=== PATIENT | male | born 1945 | race Caucasian/White ===

== ENCOUNTER 2019-10-04 01:19 | Emergency (ER) | payer SELFPAY ==
[2019-10-04 01:31] VITALS: BP 157/98; PULSE 60; RESP 20; TEMP 36.2; O2SAT 97; BMI 25.5
--- NOTE | 2019-10-04 01:37 | XR_ITS ---
WS: [id number] ABDOMEN SERIES ACUTE Supine and upright views of the abdomen with AP or PA chest CLINICAL INFORMATION: Constipation COMPARISON: None. FINDINGS: Heart: Normal cardiac silhouette. Lungs: Lungs are clear. No consolidation or pleural fluid. Advanced chronic emphysematous changes. Bowel gas pattern: Rectosigmoid constipation. Pelvic phleboliths. Free air: None. Abnormal calcifications: None. Bones: Osteopenia. Mild lumbar curve convex right. XR/XR acute abdomen series [id number] IMPRESSION: 1. Advanced chronic emphysematous changes. No acute pulmonary infiltrates. 2. Osteopenia. 3. Rectosigmoid constipation. Otherwise normal bowel gas pattern.
--- NOTE | 2019-10-04 02:19 | ED_ITS ---
HPI - General Adult General: Chief complaint: General Medical Stated complaint: NO BM X 2 DAYS Time Seen by Provider: 10/04/19 01:46 History of Present Illness: HPI narrative: Adriano is a nice 73-year-old male who comes in complaining of constipation. He states that he has had this problem intermittently in the past. He states he feels like there is something down in his rectum but he just cannot get it to pass. He denies any vomiting or fever. He states he has some cramping in his rectum when he tries to go but otherwise denies any abdominal pain. He is tried prunes at home to help with this but he states that is not improving his symptoms. Associated symptoms: Deny chest pain, confusion, diaphoresis, dyspnea, headache(s), malaise, nausea, rash, palpitations, syncope or vomiting Review of Systems Const: Denies: fever(s), chills, body aches, fatigue, malaise, night sweats or diaphoresis Eyes: Denies: change in vision, blurry vision or blind spots ENMT: Denies: throat pain, odynophagia, hoarseness, ear or mastoid pain, ear discharge, change in hearing or nasal discharge Card: Denies: chest pain, palpitations, irregular heart rhythm, lightheadedness, syncope, pre-syncope, dyspnea on exertion or orthopnea Resp: Denies: dyspnea, productive cough, non-productive cough, wheezing, hemoptysis or chest congestion GI: Reports: constipation; Denies: abdominal pain, nausea, vomiting, hematemesis, coffee ground emesis, heartburn, diarrhea, GI cramping, hematochezia or melena : Denies: flank pain, dysuria, urinary frequency, urinary urgency, oliguria, urinary incontinence or hematuria Musc: Denies: neck pain, back pain, extremity pain, extremity swelling, joint pain, joint swelling, joint redness, joint warmth or joint stiffness Skin/Breast: Denies: rash, pruritus, erythema, skin tenderness or jaundice Neuro: Denies: headache(s), numbness in extremities, weakness in extremities, sensory changes, lack of coordination, difficulty walking, dizziness, vertigo, confusion or Slurred speech present Endo: Denies: polyuria, polydipsia, tired all the time, cold intolerance, excessive sweating, flushing, hot flashes or heat intolerance Randy/Lymph: Denies: easy bruising, easy bleeding, petechiae, purpura or enlarged lymph nodes All/Imm: Denies: urticaria, throat swelling, tongue swelling, facial swelling or acute wheezing PFSH ED PFSH: Medical History Anxiety Surgical History History of nasal surgery Social History Smoking and tobacco status: never smoked Physical Exam Const: COMMON NORMALS: no acute distress, patient oriented x3, no limitations, healthy appearing and well nourished EXAM LIMITATIONS: no altered mental status GENERAL APPEARANCE: cooperative, well kempt and well developed HENMT: COMMON NORMALS: normocephalic, atraumatic, hearing grossly normal bilaterally, external ears normal, EAC's normal, Normal external nose present and moist oral mucous membranes HEAD & SCALP: normal to inspection, normocephalic and atraumatic FACE & SINUS: normal facial exam and face symmetric NOSE: Normal external nose present and Normal nares present EXTERNAL EAR: Yes external ears normal EXTERNAL AUDITORY CANAL: EAC's normal MOUTH: Normal oral and palatal mucosa present, lip normal and tongue normal Eye: COMMON NORMALS: Equal, round and reactive pupils present, EOMs intact bilaterally, conjunctivae normal and no scleral icterus GENERAL EYE: appearance normal, both eyes and all related structures ALIGNMENT: Yes alignment normal PERIORBITAL: periorbital findings normal EYELID: eyelids normal CONJUNCTIVA: Yes conjunctivae normal SCLERA: sclerae normal PUPIL: Yes Equal, round and reactive pupils present Neck/C-Spine: COMMON NORMALS: full ROM, no lymphadenopathy, supple, no meningeal signs and no JVD GENERAL: Yes normal visual inspection and Yes trachea midline CERVICAL SPINE: Yes cervical ROM normal Chest: COMMONS NORMALS: normal inspection of the chest and normal palpation of entire chest wall Resp: COMMON NORMALS: normal respiratory effort, No retractions, No use of accessory muscles and clear to auscultation bilaterally EFFORT & INSPECTION: Yes able to speak in complete sentences AUSCULTATION: clear to auscultation bilaterally, no crackles, no rales, no rhonchi and no wheezes Cardio: COMMON NORMALS: no JVD, regular rate, regular rhythm, S1 normal heart sound present, S2 normal heart sound present, No gallops present (Cardio), No clicks present (Cardio), No murmurs present (Cardio) and No rub (Cardio) RATE: regular rate RHYTHM: regular rhythm HEART SOUNDS: S1 normal heart sound present, S2 normal heart sound present, no click, no gallops, no murmurs and no rubs GI: COMMON NORMALS: Soft to palpation, non-tender, No hepatosplenomegaly present and no masses PALPATION: Yes Soft to palpation, No Tenderness to palpation present (GI), No Guarding due to palpation present (GI), No Rigid due to palpation, Yes No hepatosplenomegaly present, No Hernia present, No Palpable mass present and No Pulsatile mass present : COMMON NORMALS: Yes no CVA tenderness BLADDER/KIDNEY EXAM: Yes no CVA tenderness Back/Pelvis: COMMON NORMALS: no CVA tenderness, thoracic and lumbar spine normal to inspection, no thoracic nor lumbar tenderness and thoraco-lumbar ROM normal Extremity: COMMON NORMALS: normal to inspection, full ROM, capillary refill normal, no joint enlargement, no clubbing, cyanosis or edema and no calf tenderness Neuro: COMMON NORMALS: patient oriented x3, CN's II-XII intact bilaterally, moves all extremities, no focal motor deficits and no sensory deficits noted MENINGEAL SIGNS: Yes no meningeal signs SPEECH: speech normal Psych: COMMON NORMALS: mental status grossly normal, Normal thought process present, cooperative, normal affect, speech normal and activity/motor behavior normal APPEARANCE: Yes well kempt SPEECH: Yes normal speech THOUGHT PROCESS: Normal thought process present Skin: COMMON NORMALS: no rashes or lesions noted, turgor normal, no jaundice, no petechiae and no mottling GENERAL SKIN EXAM: no rashes or lesions noted and turgor normal Course Vital Signs: Vital signs: Vital Signs Temperature 97.2 F L 10/04/19 01:31 Pulse Rate 60 10/04/19 01:31 Respiratory Rate 20 H 10/04/19 01:31 Blood Pressure 157/98 10/04/19 01:31 Pulse Oximetry 97 10/04/19 01:31 MDM - General Adult MDM Narrative: Medical decision making narrative: Patient does not want to be aggressive but just wanted something to help try to get him going. He will get a Dulcolax suppository and a dose of lactulose here. I will discharge him home with instructions to return for vomiting, fever or abdominal pain. He states he understands all this and will follow-up as directed or return here if needed. I saw no sign of bowel obstruction and the patient's historical findings do not suggest this as well. Imaging Data^: Acute Abdominal Series: My impression: Fecal impaction present but no sign of bowel obstruction. Discharge Plan Discharge Patient Disposition: Home, Self-Care Clinical Impression: Fecal impaction Constipation Qualifiers: Constipation type: unspecified constipation type Qualified Code(s): K59.00 - Constipation, unspecified Condition: Stable Discharge Orders: Discharge Order (Routine); Ordered 10/04/19 Ordered By: Christine Winslow Referrals: Hernandez Fischer MD [Physician] - 1-3 days Discharge Diet: Advance as tolerated Discharge Activity: Increase activity as tolerated Patient Instructions: Constipation (ED), Fecal Impaction (ED) Activity Restrictions/Additional Instructions: Please return to the ER immediately for any of the signs or symptoms listed on your discharge instruction sheets, worsening/changing of your symptoms, you are not getting better as quickly as expected, or for ANY other cause or concerns. Return to the ER for vomiting, fever, new onset of abdominal pain, or for any other cause for concern. Try [id number] magnesium citrate if what you have been given here in the ER is unsuccessful and causing a bowel movement. 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
[2019-10-04] MEDS: lactulose oral liq 20 gm/30 mL UDC 30 GM PO (02:26)
[2019-10-04] MEDS: bisacodyl 10 mg Supp PR (02:27)
== END 2019-10-04 02:46 | disposition home or self-care (01) ==
PROVIDERS: Emergency Provider Emergency Medicine
DX: K59.00 Constipation, unspecified (principal)
CPT/HCPCS: 12345; 74022; 99281; 99283

== ENCOUNTER 2021-10-09 13:36 | Emergency (ER) | payer SELFPAY ==
[2021-10-09 13:48] VITALS: BP 168/103; PULSE 68; RESP 14; TEMP 36.4; O2SAT 96; BMI 23.2
--- NOTE | 2021-10-09 14:01 | ED_ITS ---
HPI - General Adult General: Chief complaint: General Medical Stated complaint: sent from urgent care, High bp Time Seen by Provider: 10/09/21 13:43 History of Present Illness: 75-year-old male with a history of elevated blood pressure presents to the emergency department stating his blood pressure is higher than usual because he has been under a lot of stress recently. He says that he has been told his blood pressure is high for a long time but he can usually control it down to the 140s. He did not feel like taking blood pressure medication in the 140s. However, his twin brother has been on blood pressure medication for a long time. His brother takes amlodipine. Patient reports that he had a new neighbor move then and there is been a lot of tension. He feels this is driving up his blood pressure. He can feel a pounding in his head. No confusion, visual changes, chest pain, shortness of breath, vomiting, or signs of hypertensive emergency. Review of Systems Narrative: Pertinent Positives: Headache, anxiety/stress, high blood pressure Pertinent Negatives: See HPI 12 Point ROS performed and otherwise negative unless stated here or HPI. [facility] ED PFSH: Medical History (Updated 10/09/21 @ 14:09 by Yoel Neff MD) Anxiety Surgical History History of nasal surgery Social History Smoking and tobacco status: never smoked Physical Exam Narrative: EXAM NARRATIVE: I have reviewed the triage vital signs. Const: Well-nourished, Well-developed, appearing stated age, NAD. Anxious, talkative Eyes: EOMI, no conjunctival injection, and symmetrical lids. ENMT: Atraumatic head and facial exam, external nose and ears normal Neck: Symmetric, trachea midline, no swelling, no JVD, ROM wnl CVS: Regular rate, radial pulse 2+, no peripheral edema RESP: Unlabored respirations, symmetric expansion, Clear to auscultation bilaterally GI: Nontender/Nondistended, soft, no masses. MSK: Normocephalic/Atraumatic, extremities w/o deformity, no cyanosis or clubbing, no edema Skin: Warm, Dry, No rashes or lesions noted. Neuro: Sensation grossly intact, DICKINSON, no focal neurologic deficits Psych: awake, alert, oriented, flight of ideas, rapid speech Course Vital Signs: Vital signs: Vital Signs Temperature 97.6 F 10/09/21 13:48 Pulse Rate 68 10/09/21 13:48 Respiratory Rate 14 10/09/21 13:48 Blood Pressure 168/103 10/09/21 13:48 Pulse Oximetry 96 10/09/21 13:48 MDM - General Adult Medical Decision Making My impression is that this patient suffers from chronic hypertension but is having accelerated hypertension which appears to be secondary to acute stressors. The patient does not want any medication for anxiety or stress. He does want something to keep his blood pressure down. He was as high as 180 mmHg at home. He does not have any hypertensive emergency at this time. We will give him clonidine 0.2 mg and start him on amlodipine 5 mg. Discharge Plan Discharge Patient Disposition: Home Clinical Impression: Accelerated essential hypertension Condition: Stable Prescriptions: New amlodipine 5 mg tablet 5 mg PO DAILY Qty: 30 2RF Rx Instructions: Take 5mg daily for the first three days. If this is not controlling your blood pressure, then you may increase to 10mg daily. Discharge Orders: Discharge ED (Routine); Ordered 10/09/21 Ordered By: Yoel Neff Referrals: Andrés Conteh DO [Physician] - 1 week Discharge Diet: Usual diet Discharge Activity: Resume usual activity Patient Instructions: Hypertension (ED) Coding Level of Care Code ED Campus Supervisor for [employer]
[2021-10-09 14:15] VITALS: BP 190/109; PULSE 68; RESP 17; O2SAT 96
[2021-10-09 14:19] VITALS: BP 190/109
[2021-10-09] MEDS: amlodipine 5 mg Tablet PO (14:19)
[2021-10-09] MEDS: cloNIDine 0.1 mg Tablet 0.2 MG PO (14:19)
[2021-10-09 14:38] VITALS: BP 156/87
--- NOTE | 2021-10-11 10:31 | DCPLANNER ---
marketing intelligence manager had message to speak with patient about getting established with a primary care physician. marketing intelligence manager called patient at phone number [phone] - unable to speak with patient the number was the wrong number for patient.
--- NOTE | 2021-10-25 13:46 | DCPLANNER ---
late entry - case consultant had message to speak with patient about getting established with a primary care physician. corporate traffic manager was unable to speak with patient or leave a voicemail for patient.
== END 2021-10-09 14:39 | disposition home or self-care (01) ==
PROVIDERS: Emergency Provider Emergency Medicine
DX: I10 Essential (primary) hypertension (principal)
CPT/HCPCS: 99283

== ENCOUNTER → 2022-08-21 09:18 | Outpatient (BNVA) | payer SELFPAY | PROVIDERS: PCP Family Medicine; Visit Provider Family Medicine | DX: I10 Essential (primary) hypertension (principal); F29 Unspecified psychosis not due to a substance or known physiological condition; F31.10 Bipolar disorder, current episode manic without psychotic features, unspecified; F41.9 Anxiety disorder, unspecified; I72.9 Aneurysm of unspecified site; R41.3 Other amnesia | CPT/HCPCS: 80053; 80061; 84439; 84443; 85025 ==

== ENCOUNTER 2023-11-03 14:30 | Emergency (ER) | payer SELFPAY ==
[2023-11-03 14:42] VITALS: BP 153/82; PULSE 61; RESP 18; TEMP 36.7; O2SAT 97; BMI 24.7
--- NOTE | 2023-11-03 14:50 | ECG_ITS ---
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 Measurements Intervals [place] Rate: 63 P: 44 TX: 146 QRS: 19 QRSD: 101 T: 62 QT: 429 QTc: 441 Interpretive Statements SINUS RHYTHM POSSIBLE RIGHT VENTRICULAR CONDUCTION DELAY [RSR (QR) IN V1/V2] No previous ECG available for comparison Electronically Signed On 11-03-2023 15:22:06 CDT by Christian Marc M.D. [email or web address]
--- NOTE | 2023-11-03 14:50 | CT_ITS ---
WS: [id number] CT HEAD NONCONTRAST HISTORY: Symptoms of acute stroke TECHNIQUE: Contiguous axial imaging performed through the brain in 2.5 mm imaging. Bone and soft tiss ue windows. Sagittal and coronal reformats reviewed. All CT scans at [facility] use at least one of these dose optimization techniques: automated exposure control; mA and/or kV adjustment per pa tient size (includes targeted exams where dose is matched to clinical indication); or iterative recon struction. DLP: 1033.38 mGy COMPARISON: None available. No acute intracranial hemorrhage, midline shift or mass effect. Mild atrophy and small vessel ischemic disease. Small prior lacunar infarcts in the anterior internal capsules. Ventricles: Normal size with no hydrocephalus. Tortuous, dolichoectatic distal vertebral arteries. Paranasal sinuses: Tiny mucous retention cyst in the LEFT frontal sinus. No air-fluid levels. Small m ucous retention cyst in the RIGHT maxillary sinus. Mastoid air cells: Well pneumatized. Calvarium and scalp: Skull is intact with no soft tissue edema or swelling. CT/CT head thrombolytic [id number] IMPRESSION: 1. No acute intracranial hemorrhage or edema. 2. No acute infarct. 3. Mild atrophy and small vessel ischemic disease. Notified Naresh Whiteside DO at 11/03/2023 3:04 PM.
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
[2023-11-03 15:09] LABS: Glucose Point of Care 141 mg/dL (70-110)
[2023-11-03 15:14] LABS: Basophils % 0.5 %; Eosinophils # 0.1 10^3/uL (0.0-0.8); Eosinophils % 1.4 %; Hematocrit 45.7 % (37-53); Lymphocytes # 1.5 10^3/uL (0.8-4.8); Lymphocytes % 23.2 %; Mean Corpuscular Hemoglobin 31.3 pg (27-33); Mean Corpuscular Volume 94.8 fl (82-101); Mean Platelet Volume 10.1 fL (7.4-10.4); Monocytes # 0.7 10^3/uL (0.2-0.9); Monocytes % 11.1 %; Neutrophils # 4.15 10^3/uL (1.8-7.7); Neutrophils % 63.6 %; Nucleated Red Blood Cells % 0 %; Platelet Count 189 10^3/cmm (157-399); Red Blood Count 4.82 10^6/uL (3.85-5.65); Red Cell Distribution Width 13.3 % (12.1-15.1); White Blood Count 6.51 10^3/uL (3.29-11.43)
[2023-11-03 15:24] VITALS: BP 140/94; BP 148/98; BP 158/94; PULSE 61; PULSE 71; PULSE 77
[2023-11-03 15:26] VITALS: BP 140/94; PULSE 54; RESP 12; O2SAT 97
[2023-11-03 15:31] LABS: INR 1.02 (0.8-1.2)
[2023-11-03 15:32] LABS: Partial Thromboplastin Time 36.1 SECONDS (23.9-36.7)
[2023-11-03 15:37] LABS: Alanine Aminotransferase 15 U/L (0-41); Albumin Level 4.1 g/dL (3.5-5.2); Alkaline Phosphatase 100 U/L (40-130); Aspartate Amino Transferase 21 U/L (0-40); Blood Urea Nitrogen 21 mg/dL (8-23); Calcium 9.1 mg/dL (8.5-10.5); Carbon Dioxide 24 mmol/L (22-29); Chloride 108 mmol/L (98-107); Creatinine Clr Calc Pharmacy 78.4604; Globulin 3.1 g/dL (1.3-4.6); Glucose 126 mg/dL (65-115); Osmolality Calculated 297 mOsm/kg (285-295); Sodium 141 mmol/L (136-145); Total Bilirubin 1.9 mg/dL (0.15-1.2); Total Protein 7.2 g/dL (6.6-8.7)
[2023-11-03 15:45] LABS: Anion Gap 13.1 (5-19); Potassium 4.1 mmol/L (3.5-5.1)
[2023-11-03 16:23] VITALS: BP 144/84; PULSE 54; RESP 18; O2SAT 98
[2023-11-03 16:30] LABS: Add Urine Microscopic? NO; Charge for UA Resulting for Rev
[2023-11-03 16:52] LABS: Bilirubin Urine 1+ (Negative); Blood Urine Neg (Negative); Glucose Urine UA Norm (Normal); Ketones Urine Negative (Negative); Leukocyte Esterase Urine Negative (Negative); Nitrate Urine Negative (Negative); Protein Urine Neg (Negative); Urine Appearance Clear (CLEAR); Urine Color Yellow (Yellow); Urobilinogen Urine Norm (Negative); pH Urine 7 (5-7)
[2023-11-03 17:01] LABS: Amphetamines Screen Urine Negative (Negative); Barbiturates Screen Urine Negative (Negative); Benzodiazepines Screen Urine Negative (Negative); Cocaine Screen Urine Negative (Negative); Opiate Screen Urine Negative (Negative); PCP Screen Urine Negative (Negative); THC Screen Urine Negative (Negative)
[2023-11-03 18:01] VITALS: BP 171/96; PULSE 56; RESP 16; O2SAT 99
== END 2023-11-03 18:02 | disposition home or self-care (01) ==
PROVIDERS: Emergency Provider Family Medicine; PCP Family Medicine
DX: G45.9 Transient cerebral ischemic attack, unspecified (principal); R42 Dizziness and giddiness
CPT/HCPCS: 36416; 70450; 80053; 80306; 81003; 82962; 85025; 85610; 85730; 93005; 99284

== ENCOUNTER 2024-09-12 20:45 | Emergency (ER) | payer SELFPAY ==
[2024-09-12 20:53] VITALS: BP 158/109; PULSE 81; RESP 16; TEMP 36.9; O2SAT 97
--- NOTE | 2024-09-12 20:58 | XRR_ITS ---
PROCEDURE INFORMATION: Exam: XR Left Knee Exam date and time: 09/12/2024 9:14 PM Age: 78 years old Clinical indication: Left; Lt knee pain post fall; Limited rom; Additional info: Fall/injury TECHNIQUE: Imaging protocol: Radiologic exam of the left knee. Views: 3 views. COMPARISON: No relevant prior studies available. FINDINGS: Bones/joints: Fracture through the patella with distraction of the fracture fragments. Soft tissues: Soft tissue swelling along the anterior knee. XR/XR knee LT 3V* [id number] IMPRESSION: Patellar fracture.
[2024-09-12 21:09] VITALS: PULSE 83; O2SAT 96
--- NOTE | 2024-09-12 21:12 | ED_ITS ---
HPI - Extremity Injury (Lower) General: Chief Complaint: Extremity Injury, Lower Stated Complaint: fall-left knee injury Time Seen by Provider: 09/12/24 20:58 Source: patient Mode of arrival: wheelchair Limitations: no limitations History of Present Illness: Patient is a 78-year-old male presents to ED today with a complaint of left knee pain. Patient states earlier this morning he accidentally fell while going up/down some stairs and landed directly onto my patella . He states he has not been able to bear weight since the incident due to pain. He has noticed swelling to the knee joint. He has no other injuries or complaints at this time. MD complaint: knee injury Onset (ago): hour(s) Injury: Left: knee Type of Injury: blunt Place: home Severity: moderate Relieving factors: immobilization Exacerbating factors: weight bearing, movement and palpation Context: fall and direct blow Associated symptoms: Reports inability to bear weight Other symptoms: none Related Data Previous Rx's ?Medication ?Instructions ?Recorded loratadine 10 mg tablet (Allergy 10 mg PO DAILY PRN dinora white 03/18/23 Relief (loratadine)) symptoms #90 tabs aspirin 81 mg tablet,delayed 81 mg PO DAILY #30 tabs 0 11/03/23 release atorvastatin 40 mg tablet 40 mg PO DAILY #30 tabs 10/17 12/09 clopidogrel 75 mg tablet 75 mg PO DAILY #30 tabs 10/17 12/09 meclizine 25 mg tablet 25 mg PO Q6H PRN dizziness # 20 tabs 11/03/23 Allergies Allergy/AdvReac Type Severity Reaction Status Date / Time No Known Allergies Allergy Verified 09/12/24 20:51 Review of Systems Musc: Reports: joint pain (L knee) and joint swelling (L knee); Denies: neck pain, back pain, extremity pain, extremity swelling, joint redness or joint warmth Neuro: Reports: difficulty walking (due to pain in L knee); Denies: numbness in extremities, weakness in extremities or sensory changes COUNTS INCLUDE 234 BEDS AT THE [facility] ED PFSH: Medical History (Updated 09/12/24 @ 22:06 by NOEMY Jaramillo) Anxiety Surgical History History of nasal surgery Family History Brother Psychiatric illness Mother Cancer breast Other Hypertension Denies family history of Diabetes CAD (coronary artery disease) Stroke Social History Smoking and tobacco/nicotine status: never used tobacco/nicotine Alcohol intake: never Substance/Drug Use: never Current occupational status: disabled Special lesly needs: No Agree to transfusion: Yes Physical Exam Const: COMMON NORMALS: no acute distress, patient oriented x3, no limitations, alert and well nourished GENERAL APPEARANCE: cooperative HENMT: COMMON NORMALS: normocephalic and atraumatic HEAD & SCALP: normal to inspection, normocephalic and atraumatic Neck/C-Spine: COMMON NORMALS: full ROM CERVICAL SPINE: No Cervical spine tenderness Back/Pelvis: COMMON NORMALS: negative for thoracic and lumbar spine normal to inspection Extremity: COMMON NORMALS: capillary refill normal, no clubbing, cyanosis or edema, no calf tenderness and no pedal edema GENERAL: Yes normal exam except as noted LEFT LOWER EXTREMITY: Yes knee joint (TTP/edema anterior L knee) Left knee: Yes ROM (limited secondary to pain) and Yes neurovascular exam (normal) Neuro: COMMON NORMALS: patient oriented x3, moves all extremities, no focal motor deficits and no sensory deficits noted SENSORIUM/ORIENTATION: Yes alert Course Consultations: Consultation #1: Dr. Manriquez-knee immobilizer and will follow-up in office; states this will be a surgical patellar fracture Vital Signs: Vital signs: Vital Signs Temperature 98.4 F 09/12/24 20:53 Pulse Rate 83 09/12/24 21:09 Respiratory Rate 16 09/12/24 20:53 Blood Pressure 158/109 09/12/24 20:53 Pulse Oximetry 96 09/12/24 21:09 Oxygen Delivery Me thod Room Air 09/12/24 21:09 MDM - Extremity Injury (Lower) Medical Decision Making Patient is a 78-year-old male here after he fell on a flight of stairs directly onto his left anterior knee. Patient has a significant patellar fracture that will require surgery. Patient was placed in a knee immobilizer and given crutches. Recommend ice and elevation. Patient adamantly does not want surgery stating I would rather walk on crutches the rest of my life then have surgery . I told patient that he can discuss options with Dr. Manriquez at his follow-up visit. He is agreeable to this. Case management referral placed. He was offered pain medications several times but he declines. Lab Data Radiology Impressions Knee X-Ray 09/12/24 20:58 IMPRESSION: Patellar fracture. All radiology interpretation(s) finalized by discharge Discharge Plan Discharge Patient Disposition: Home Clinical Impression: Closed fracture of left patella Qualifiers: Encounter type: initial encounter Fracture morphology: unspecified fracture morphology Fracture alignment: displaced Qualified Code(s): S82.002A - Unspecified fracture of left patella, initial encounter for closed fracture Condition: Stable Prescriptions: No Action loratadine [Allergy Relief (loratadine)] 10 mg tablet 10 mg PO DAILY PRN (Reason: allergy symptoms) Qty: 90 0RF meclizine 25 mg tablet 25 mg PO Q6H PRN (Reason: dizziness) Qty: 20 0RF aspirin 81 mg tablet,delayed release (DR/EC) 81 mg PO DAILY Qty: 30 0RF clopidogrel 75 mg tablet 75 mg PO DAILY Qty: 30 0RF atorvastatin 40 mg tablet 40 mg PO DAILY Qty: 30 0RF Discharge Orders: Discharge ED (Routine); Ordered 09/12/24 Ordered By: Teresa Brito Referrals: Srinath Iniguez MD [Primary Care Provider] - Patient Instructions: Patellar Fracture (ED) Activity Restrictions/Additional Instructions: As we discussed, case management will reach out to you to set you up with a follow-up appointment with orthopedics. It is imperative you attend this appointment to go over options for your patellar fracture to heal. You need to wear your knee immobilizer at all times apart from showering or bathing. You need to use your crutches for ambulation. You may bear weight on the knee as tolerated only while wearing your knee immobilizer and your leg in full extension. You were offered pain medication here but declined. You may take [id number] Tylenol and ibuprofen to help with discomfort. You may ice and elevate the extremity as well to help with swelling. Print Language: Turkmen Coding Level of Care Code ED [employer]
[2024-09-12 22:36] VITALS: PULSE 86; O2SAT 94
--- NOTE | 2024-09-13 09:55 | DCPLANNER ---
messaged ortho for er f/u
== END 2024-09-12 22:37 | disposition home or self-care (01) ==
PROVIDERS: Emergency Provider Physician Assistant; PCP Family Medicine
DX: S82.002A Unspecified fracture of left patella, initial encounter for closed fracture (principal); Z79.82 Long term (current) use of aspirin; Z79.02 Long term (current) use of antithrombotics/antiplatelets; W19.XXXA Unspecified fall, initial encounter
CPT/HCPCS: 73562; 99283; E0114

== ENCOUNTER → 2024-09-28 08:10 | Outpatient (BNVA) | payer SELFPAY | PROVIDERS: PCP Family Medicine; Visit Provider Physician Assistant | DX: S82.002A Unspecified fracture of left patella, initial encounter for closed fracture (principal); W19.XXXA Unspecified fall, initial encounter | CPT/HCPCS: 73560; 73565 ==

== ENCOUNTER → 2024-10-06 15:10 | Outpatient (BNVA) | payer SELFPAY | PROVIDERS: PCP Family Medicine; Visit Provider Student in an Organized Health Care Education/Training Program | DX: S82.002A Unspecified fracture of left patella, initial encounter for closed fracture (principal); X58.XXXA Exposure to other specified factors, initial encounter | CPT/HCPCS: 73562 ==

== ENCOUNTER → 2024-10-13 11:40 | Outpatient (BNVA) | payer SELFPAY | PROVIDERS: PCP Family Medicine; Visit Provider Physician Assistant | DX: S82.002D Unspecified fracture of left patella, subsequent encounter for closed fracture with routine healing (principal); X58.XXXD Exposure to other specified factors, subsequent encounter | CPT/HCPCS: 73562 ==

== ENCOUNTER → 2024-10-27 09:44 | Outpatient (BNVA) | payer SELFPAY | PROVIDERS: PCP Family Medicine; Visit Provider Physician Assistant | DX: S82.002A Unspecified fracture of left patella, initial encounter for closed fracture (principal); X58.XXXA Exposure to other specified factors, initial encounter | CPT/HCPCS: 73560; 73565 ==

== ENCOUNTER → 2024-11-10 15:32 | Outpatient (BNVA) | payer SELFPAY | PROVIDERS: PCP Family Medicine; Visit Provider Physician Assistant | DX: S82.002A Unspecified fracture of left patella, initial encounter for closed fracture (principal); X58.XXXA Exposure to other specified factors, initial encounter | CPT/HCPCS: 73560; 73565 ==

== ENCOUNTER → 2025-03-15 15:34 | Outpatient (BNVA) | payer SELFPAY | PROVIDERS: PCP Family Medicine; Visit Provider Physician Assistant | DX: S82.002D Unspecified fracture of left patella, subsequent encounter for closed fracture with routine healing (principal); X58.XXXD Exposure to other specified factors, subsequent encounter | CPT/HCPCS: 73560; 73565 ==